=== PATIENT | male | born 1975 | race Hispanic/Latino ===

== ENCOUNTER 2021-11-22 15:17 | Emergency (ER) | payer SELFPAY ==
[~2021-11-22] VITALS: Ht 160 cm; Wt 77.1 kg
[~2021-11-22 15:17] MED LIST: LORTAB5 PO; NO
[2021-11-22 15:42] VITALS: BP 129/78
[2021-11-22 16:19] VITALS: BP 110/68
[2021-11-22 16:31] VITALS: BP 115/74
[2021-11-22 16:44] LABS: URINE BILIRUBIN - DIPSTICK NEGATIVE (NEGATIVE); URINE BLOOD DIPSTICK NEGATIVE (NEGATIVE); URINE COLOR YELLOW; URINE GLUCOSE - DIPSTICK NEGATIVE (NEGATIVE); URINE KETONE NEGATIVE (NEGATIVE); URINE LEUK ESTERASE NEGATIVE (NEGATIVE); URINE NITRITE - DIPSTICK NEGATIVE (Negative); URINE PH 6.5 (4.5-8.0); URINE PROTEIN - DIPSTICK NEGATIVE (NEG-TRACE); URINE SPECIFIC GRAVITY 1.025
[2021-11-22 17:00] VITALS: BP 108/71
== END 2021-11-22 17:31 | disposition home or self-care (01) | DRG 313 ==
LOC: ED 15:17
DX: R07.89 Other chest pain (principal); E78.5 Hyperlipidemia, unspecified; F17.210 Nicotine dependence, cigarettes, uncomplicated

== ENCOUNTER 2022-06-25 06:27 | Emergency (ER) | payer SELFPAY ==
[~2022-06-25] VITALS: Ht 160 cm; Wt 79.0 kg
[2022-06-25 06:37] VITALS: BP 138/64
[2022-06-25 06:46] VITALS: BP 117/72
[2022-06-25 07:00] VITALS: BP 115/74
[2022-06-25 07:05] LABS: BASO% 0.2 % (0-3); EOS% 6.8 % (0-8); HEMATOCRIT 41.3 % (39.0-50.0); HEMOGLOBIN 14.4 g/dl (14.0-18.0); IMMATURE GRANULOCYTES 0.2 % (0.0-5.0); MEAN CELL VOLUME 85.2 fL CALC (80.0-100.0); MEAN CORPUSCULAR HGB 29.7 pG CALC (26.0-32.0); MEAN CORPUSCULAR HGB CONC 34.9 g/dL CAL (32.0-36.0); MONO% 8.8 % (2-13); NEUT# 3.96 thou/uL (1.82-7.42); RED BLOOD COUNT 4.85 mill/uL (4.70-6.10); RED CELL DISTRI WIDTH 12.8 % (11.5-15.5)
[2022-06-25 07:15] VITALS: BP 109/70
[2022-06-25 07:20] LABS: ALKALINE PHOSPHATASE 71 u/l (38-126); ANION GAP 10 (6-22 (CALC)); BILIRUBIN, TOTAL 0.3 mg/dL (0.0-1.4); BUN 18 mg/dL (9-20); BUN/CREATININE RATIO 18 (12-20 (CALC)); CARBON DIOXIDE 24 mmol/l (22-30); CHLORIDE 110 mmol/l (95-108); GFR FOR AFR.AMER. > 60 ML/MIN (>=60 (CALC)); GFR OTHER RACES > 60 ML/MIN (>=60 (CALC)); POTASSIUM 4.2 mmol/l (3.5-5.1); SGOT/AST 45 u/l (17-59); SODIUM 140 mmol/l (137-146); TOTAL PROTEIN 6.9 g/dL (6.3-8.2)
[2022-06-25 07:30] VITALS: BP 111/70
[2022-06-25] MEDS ORDERED: ONDANSETRON4 MG PO (07:46)
[2022-06-25] MEDS ORDERED: MECLIZINE25 MG PO (07:46)
[2022-06-25] MEDS ORDERED: TAM75CAP PO (07:46)
[2022-06-25 07:52] VITALS: BP 111/70
== END 2022-06-25 08:01 | disposition home or self-care (01) | DRG 149 ==
LOC: ED 06:27
PROVIDERS: Family Medicine
DX: H81.10 Benign paroxysmal vertigo, unspecified ear (principal); J10.1 Influenza due to other identified influenza virus with other respiratory manifestations

== ENCOUNTER 2024-09-05 16:56 | Emergency (ER) | payer SELFPAY ==
[~2024-09-05] VITALS: Ht 165.1 cm; Wt 172.0 kg
[~2024-09-05 16:56] MED LIST changes: +MECLIZINE25 MG PO; +ONDANSETRON4 MG PO; +TAM75CAP PO
[2024-09-05 17:03] VITALS: BP 120/74
[2024-09-05 17:15] VITALS: BP 110/63
[2024-09-05 17:30] VITALS: BP 109/62
== END 2024-09-05 17:32 | disposition home or self-care (01) | DRG 153 ==
LOC: ED 16:56
DX: J30.9 Allergic rhinitis, unspecified (principal); E78.5 Hyperlipidemia, unspecified; F17.200 Nicotine dependence, unspecified, uncomplicated